=== PATIENT | female | born 1995 | race African-American/Black ===

== ENCOUNTER 2024-05-11 17:35 | Emergency (ER) | payer OTHER ==
[~2024-05-11] VITALS: Ht 170.2 cm; Wt 100.0 kg
[2024-05-11 17:41] VITALS: BP 108/62; PULSE 103; RESP 16; TEMP 98.3; O2SAT 98
[2024-05-11] MEDS: BACITRACIN 0.9 GM PACKET OINTMENT TP ONE (19:52)
[2024-05-11] MEDS: PERTUSS(ACELL),DIPH,TET/PF 0.5 ML SYRINGE [ADULT] IM. ONE (19:52)
[2024-05-11] MEDS: IBUPROFEN 400 MG TABLET PO ONE (19:52)
[2024-05-11] MEDS ORDERED: IBUP-1506 PO (20:07)
[2024-05-11] MEDS ORDERED: CEPH-558 PO (20:07)
[2024-05-11] MEDS: CEPHALEXIN MONOHYDRATE 500 MG CAPSULE PO ONE (20:21)
== END 2024-05-11 20:32 | disposition home or self-care (01) ==
LOC: EMS 17:39
DX: S61.213A Laceration without foreign body of left middle finger without damage to nail, initial encounter (principal); X99.8XXA Assault by other sharp object, initial encounter; Y93.89 Activity, other specified; Y92.89 Other specified places as the place of occurrence of the external cause; Y99.8 Other external cause status
CPT/HCPCS: 12001; 90471; 90715; 99283